=== PATIENT | female | born 1990 | race Caucasian/White ===

== ENCOUNTER 2018-05-09 16:54 | Inpatient (IN) | payer MEDICAID ==
[~2018-05-09] VITALS: Ht 157.5 cm; Wt 64.2 kg
[~2018-05-09 16:54] MED LIST: NO HOME MEDS
[2018-05-09] MEDS ORDERED: normal saline 1000ML IV soln IVB ONE ×2 (17:40)
[2018-05-09 18:59] LABS: BASOPHILS % (AUTO) 0 % (0-1); EOSINOPHILS % (AUTO) 0 % (0-6); HEMATOCRIT 47.4 % (35.0-45.0); HEMOGLOBIN 15.8 g/dl (12.0-16.0); LYMPHOCYTES # (AUTO) 0.7 X10'3 (1.1-4.8); LYMPHOCYTES % (AUTO) 3.5 % (21-51); MEAN CORPUSCULAR HEMOGLOBIN 30.4 PG (27.0-31.0); MEAN CORPUSCULAR HGB CONC 33.3 % (33.0-36.5); MEAN CORPUSCULAR VOLUME 91.4 FL (78-98); MEAN PLATELET VOLUME 8.1 FL (7.4-10.4); MONOCYTES # (AUTO) 0.5 X10'3 (0-0.9); MONOCYTES % (AUTO) 2.5 % (2-12); NEUTROPHILS # (AUTO) 17.5 X10'3 (1.8-7.7); PLATELET COUNT 215 X10'3 (140-440); RED BLOOD COUNT 5.19 X10'6 (4.20-5.60); RED CELL DISTRIBUTION WIDTH 12.6 % (11.5-14.5); WHITE BLOOD COUNT 18.6 X10'3 (4.5-11.0)
[2018-05-09 19:13] LABS: ALANINE AMINOTRANSFERASE 28 U/L (12-78); ALBUMIN 3.8 G/DL (3.4-5.0); ALBUMIN/GLOBULIN RATIO 0.7 (1.1-1.5); ALKALINE PHOSPHATASE 111 IU/L (46-116); ANION GAP 16 (8-16); ASPARTATE AMINO TRANSFERASE 30 U/L (10-37); BILIRUBIN,TOTAL 1.3 MG/DL (0.1-1.0); BLOOD UREA NITROGEN 21 MG/DL (7-18); BUN/CREATININE RATIO 19.1 (6.6-38.0); C-REACTIVE PROTEIN 24.68 MG/DL (0.0-0.5); CALCIUM 9.5 MG/DL (8.5-10.1); CHLORIDE 90 MMOL/L (99-107); GLUCOSE 142 MG/DL (70-104); POTASSIUM 3.2 MMOL/L (3.5-5.1); SODIUM 130 MMOL/L (135-145); TOTAL CARBON DIOXIDE 24.5 MMOL/L (24-32); TOTAL PROTEIN 9.3 G/DL (6.4-8.2); eGFR 58 ML/MIN
[2018-05-09 19:16] LABS: INR 1.2 INR; PARTIAL THROMBOPLASTIN TIME 31 SECONDS (22-32)
[2018-05-09] MEDS ORDERED: vancomycin/NS 1 GM ADD-VANTAGE 250 ML X 1 DOSE IV ONE (19:35)
[2018-05-09] MEDS ORDERED: piperacillin/tazo 4.5gm/100ml 100 ML IV SCH (19:35)
[2018-05-09] MEDS ORDERED: piperacillin/tazo 4.5gm/100ml 100 ML IV ONE (19:35)
[2018-05-09 19:51] LABS: URINE HCG NEGATIVE (NEG)
[2018-05-09 19:53] LABS: COLOR,URINE YELLOW (Yellow); GLUCOSE, URINE NEGATIVE (Neg); KETONES,URINE NEGATIVE (Neg); LEUKOCYTE ESTERASE ,URINE NEGATIVE (Neg); NITRITES, URINE NEGATIVE (Neg); OCCULT BLOOD,URINE LARGE (Neg); PROTEIN,URINE 100 mg/dl (Neg); UROBILINOGEN,URINE 0.2 E.U/dL (0.2-1.0)
[2018-05-09 20:01] LABS: CLARITY,URINE SLIGHTLY CLOUDY (Clear); UA COLLECTION TYPE STRAIGHT CATH
[2018-05-09 20:02] LABS: BACTERIA,URINE FEW /HPF (Neg); COARSE GRANULAR CAST 0-3 /LPF (NEGATIVE); HYALINE CASTS 0-3 /LPF (NEGATIVE); MUCUS STRANDS FEW /LPF (Neg); SQUAMOUS EPITHELIAL CELL,UR FEW /LPF (FEW); WBC,URINE 0-4 /HPF (0-4)
[2018-05-09 20:07] LABS: URINE AMPHETAMINE SCREEN POSITIVE (Neg); URINE BARBITUATE SCREEN NEGATIVE (Neg); URINE BENZODIAZEPINES SCREEN NEGATIVE (Neg); URINE CANNABINOID SCREEN NEGATIVE (Neg); URINE COCAINE SCREEN NEGATIVE (Neg); URINE METHADONE SCREEN NEGATIVE (Neg); URINE OPIATE SCREEN POSITIVE (Neg); URINE PHENCYCLIDINE SCREEN NEGATIVE (Neg)
[2018-05-09] MEDS ORDERED: normal saline 1000ml 1,000 ML IV ONE (20:50)
[2018-05-09] MEDS ORDERED: temazepam 15mg capsule PO PRN (21:00)
[2018-05-09] MEDS ORDERED: HYDROmorphone 1 mg/ml syringe IV PRN (22:00)
[2018-05-09] MEDS ORDERED: bisacodyl 10mg suppository rectal RC PRN (22:00)
[2018-05-09] MEDS ORDERED: morphine 2 MG/ML inj. syringe IV PRN (22:00)
[2018-05-09] MEDS ORDERED: acetaminophen 650mg rectal suppository RC PRN (22:00)
[2018-05-09] MEDS ORDERED: diphenhydrAMINE 25mg capsule PO PRN (22:00)
[2018-05-09] MEDS ORDERED: magnesium hydroxide 30ml (MOM) UD suspension PO PRN (22:00)
[2018-05-09] MEDS ORDERED: diphenhydrAMINE 50 mg/ml inj IV PRN (22:00)
[2018-05-09] MEDS ORDERED: mag hydrox/Alum hydrox/simeth 30ml oral suspension PO PRN (22:00)
[2018-05-09] MEDS ORDERED: HYDROcodone/acetaminophen 5mg/325mg tablet PO PRN (22:00)
[2018-05-09] MEDS ORDERED: acetaminophen 325mg tablet PO PRN (22:00)
[2018-05-09] MEDS ORDERED: ondansetron/PF 4mg/2ml inj IV PRN (22:00)
[2018-05-09] MEDS ORDERED: pantoprazole 40 MG vial IV ONE (22:05)
[2018-05-09] MEDS ORDERED: proCHLORperazine 10 MG/2 ml inj IV PRN (22:05)
[2018-05-09] MEDS ORDERED: potassium Cl 40MEQ/NS 500ml 500 ML IV PRN ×2 (22:05)
[2018-05-09] MEDS ORDERED: potassium Cl 20 mEq SR tablet PO PRN ×2 (22:05)
[2018-05-09] MEDS ORDERED: Permethrin Cream 60gm TP ONE (23:00)
[2018-05-09 23:05] VITALS: BP 110/72
[2018-05-09] MEDS: HYDROcodone/acetaminophen 10/325mg tab PO PRN (23:16)
[2018-05-09] MEDS: potassium Cl 20mEq in NS 1,000 ML IV SCH (23:21)
[2018-05-10] VITALS (21 sets, daily range): BP systolic 75–105; BP diastolic 40–70
[2018-05-10] MEDS ORDERED: piperacillin-tazo 2.25gm/50ml 50 ML IV SCH (02:00)
[2018-05-10] MEDS: piperacillin/tazo 4.5gm/100ml 50 ML IV SCH ×2 (02:02→08:00)
[2018-05-10] MEDS ORDERED: DOPamine 400mg/D5W 250ml 250 ML IV SCH (03:20)
[2018-05-10] MEDS ORDERED: DOBUTamine-DoBUTrex 500mg/D5W 250 ML IV SCH (03:25)
[2018-05-10 03:40] LABS: ABG HCO3 15.8 mmol/L (22.0-26.0); ABG OXYGEN SATURATION 98.9 % (95-98); ABG PCO2 (T) 21.2 mmHg (32.0-45.0); ABG PH (T) 7.488 (7.350-7.450); ABG PO2 (T) 274.1 mmHg (83-108); FCOHb 0.3 % (0.5-1.5); FLOW 4 L/min; FMetHb 0.3 % (0.3-1.12); FO2Hb 98.3 % (94-100); PATIENT TEMPERATURE 36.8; TOTAL HEMOGLOBIN 10.9 G/dl (12.0-16.0)
[2018-05-10] MEDS ORDERED: albumin (Human) 5% 250ml 250 ML IV ONE (04:25)
[2018-05-10] MEDS ORDERED: albumin (Human) 5% 250ml 500 ML IV ONE (04:33)
[2018-05-10] MEDS ORDERED: NORepinephrine 8mg/ 250ml NS 250 ML IV ONE (06:03)
[2018-05-10 07:02] LABS: BASOPHILS % (AUTO) 0.1 % (0-1); EOSINOPHILS % (AUTO) 0.3 % (0-6); HEMATOCRIT 28.8 % (35.0-45.0); HEMOGLOBIN 9.4 g/dl (12.0-16.0); LYMPHOCYTES # (AUTO) 0.7 X10'3 (1.1-4.8); LYMPHOCYTES % (AUTO) 5.3 % (21-51); MEAN CORPUSCULAR HGB CONC 32.8 % (33.0-36.5); MEAN CORPUSCULAR VOLUME 91.7 FL (78-98); MEAN PLATELET VOLUME 8.5 FL (7.4-10.4); MONOCYTES # (AUTO) 0.7 X10'3 (0-0.9); NEUTROPHILS # (AUTO) 12.2 X10'3 (1.8-7.7); NEUTROPHILS % (AUTO) 89.3 % (42-75); PLATELET COUNT 137 X10'3 (140-440); RED BLOOD COUNT 3.15 X10'6 (4.20-5.60); RED CELL DISTRIBUTION WIDTH 12.8 % (11.5-14.5); WHITE BLOOD COUNT 13.6 X10'3 (4.5-11.0)
[2018-05-10 07:17] LABS: ALANINE AMINOTRANSFERASE 17 U/L (12-78); ALBUMIN 2.4 G/DL (3.4-5.0); ALBUMIN/GLOBULIN RATIO 0.9 (1.1-1.5); ALKALINE PHOSPHATASE 47 IU/L (46-116); ANION GAP 12 (8-16); ASPARTATE AMINO TRANSFERASE 21 U/L (10-37); BLOOD UREA NITROGEN 12 MG/DL (7-18); BUN/CREATININE RATIO 15.8 (6.6-38.0); CHLORIDE 104 MMOL/L (99-107); CREATININE 0.76 MG/DL (0.40-0.90); GLUCOSE 118 MG/DL (70-104); MAGNESIUM 1.8 MG/DL (1.5-2.4); POTASSIUM 3.2 MMOL/L (3.5-5.1); SODIUM 136 MMOL/L (135-145); TOTAL CARBON DIOXIDE 20.2 MMOL/L (24-32); TOTAL PROTEIN 5.2 G/DL (6.4-8.2); eGFR 89 ML/MIN
[2018-05-10 07:40] LABS: CALCIUM 6.9 MG/DL (8.5-10.1)
[2018-05-10 07:41] LABS: INR 1.5 INR; PROTHROMBIN TIME 14.7 SECONDS (9.0-12.0)
[2018-05-10] MEDS: docusate sod 100mg capsule PO SCH ×2 (07:44→20:00)
[2018-05-10] MEDS: potassium Cl 20mEq in NS 1,000 ML IV SCH ×3 (07:47→20:29)
[2018-05-10] MEDS: VANCOMYCIN 750MG IV in NS 250 ML IV SCH ×2 (08:00→19:55)
[2018-05-10] MEDS ORDERED: vancomycin/NS 1 GM ADD-VANTAGE 250 ML IV SCH (08:00)
[2018-05-10] MEDS: aspirin 81mg tab.chew PO SCH (08:57)
[2018-05-10] MEDS: HYDROmorphone 1 mg/ml syringe IV PRN ×3 (09:23→19:12)
[2018-05-10 09:47] LABS: TROPONIN I 0.69 NG/ML (0.0-0.05)
[2018-05-10] MEDS ORDERED: ceFAZolin 1GM/D5W- ADD-VANTAGE 50 ML IV SCH (10:15)
[2018-05-10] MEDS ORDERED: normal saline 1000ml 1,000 ML IVB ONE (10:24)
[2018-05-10] MEDS: NORepinephrine 8mg/ 250ml NS 250 ML IV SCH (14:52)
[2018-05-10] MEDS: ceFAZolin 1GM/D5W- ADD-VANTAGE 50 ML IV SCH (16:39)
[2018-05-10 19:00] LABS: OXYGEN SATURATION (MIXED VEN) 55.9 % (60-80)
[2018-05-10] MEDS: lactobacillus rhamnosus 10,000 MMU CELLS/CAPSULE PO SCH (19:11)
[2018-05-10 19:51] LABS: ALANINE AMINOTRANSFERASE 22 U/L (12-78); ALBUMIN 2.2 G/DL (3.4-5.0); ALBUMIN/GLOBULIN RATIO 0.7 (1.1-1.5); ALKALINE PHOSPHATASE 57 IU/L (46-116); ANION GAP 8 (8-16); ASPARTATE AMINO TRANSFERASE 32 U/L (10-37); BILIRUBIN,TOTAL 0.4 MG/DL (0.1-1.0); BLOOD UREA NITROGEN 10 MG/DL (7-18); BUN/CREATININE RATIO 14.5 (6.6-38.0); CALCIUM 7.4 MG/DL (8.5-10.1); CHLORIDE 105 MMOL/L (99-107); CREATININE 0.69 MG/DL (0.40-0.90); GLUCOSE 143 MG/DL (70-104); MAGNESIUM 1.9 MG/DL (1.5-2.4); POTASSIUM 3.6 MMOL/L (3.5-5.1); SODIUM 135 MMOL/L (135-145); TOTAL CARBON DIOXIDE 22.1 MMOL/L (24-32); TOTAL PROTEIN 5.2 G/DL (6.4-8.2); TROPONIN I 0.27 NG/ML (0.0-0.05); eGFR > 90 ML/MIN
[2018-05-10] MEDS: HYDROcodone/acetaminophen 10/325mg tab PO PRN (21:46)
[2018-05-11] VITALS (24 sets, daily range): BP systolic 79–101; BP diastolic 51–66
[2018-05-11] MEDS: ceFAZolin 1GM/D5W- ADD-VANTAGE 50 ML IV SCH ×2 (00:03→08:27)
[2018-05-11] MEDS: HYDROmorphone 1 mg/ml syringe IV PRN ×6 (00:03→21:07)
[2018-05-11] MEDS: potassium Cl 20mEq in NS 1,000 ML IV SCH ×3 (02:09→20:22)
[2018-05-11] MEDS: HYDROcodone/acetaminophen 10/325mg tab PO PRN ×5 (02:09→22:22)
[2018-05-11 03:07] LABS: ALANINE AMINOTRANSFERASE 22 U/L (12-78); ALBUMIN/GLOBULIN RATIO 0.7 (1.1-1.5); ALKALINE PHOSPHATASE 50 IU/L (46-116); ANION GAP 4 (8-16); ASPARTATE AMINO TRANSFERASE 26 U/L (10-37); BILIRUBIN,TOTAL 0.5 MG/DL (0.1-1.0); BLOOD UREA NITROGEN 8 MG/DL (7-18); BUN/CREATININE RATIO 13.8 (6.6-38.0); CALCIUM 7.6 MG/DL (8.5-10.1); CHLORIDE 107 MMOL/L (99-107); CREATININE 0.58 MG/DL (0.40-0.90); GLUCOSE 113 MG/DL (70-104); SODIUM 136 MMOL/L (135-145); TOTAL CARBON DIOXIDE 24.8 MMOL/L (24-32); eGFR > 90 ML/MIN
[2018-05-11 03:14] LABS: MAGNESIUM 2.1 MG/DL (1.5-2.4)
[2018-05-11 03:17] LABS: BASOPHILS % (AUTO) 0 % (0-1); EOSINOPHILS % (AUTO) 0.2 % (0-6); HEMATOCRIT 29.6 % (35.0-45.0); HEMOGLOBIN 9.8 g/dl (12.0-16.0); LYMPHOCYTES # (AUTO) 1.3 X10'3 (1.1-4.8); LYMPHOCYTES % (AUTO) 9.8 % (21-51); MEAN CORPUSCULAR HEMOGLOBIN 30.2 PG (27.0-31.0); MEAN CORPUSCULAR VOLUME 91.5 FL (78-98); MEAN PLATELET VOLUME 8.9 FL (7.4-10.4); MONOCYTES # (AUTO) 0.9 X10'3 (0-0.9); MONOCYTES % (AUTO) 6.6 % (2-12); NEUTROPHILS # (AUTO) 11.3 X10'3 (1.8-7.7); NEUTROPHILS % (AUTO) 83.4 % (42-75); PLATELET COUNT 171 X10'3 (140-440); RED BLOOD COUNT 3.24 X10'6 (4.20-5.60); RED CELL DISTRIBUTION WIDTH 13.2 % (11.5-14.5); WHITE BLOOD COUNT 13.5 X10'3 (4.5-11.0)
[2018-05-11] MEDS: aspirin 81mg tab.chew PO SCH (08:25)
[2018-05-11] MEDS: lactobacillus rhamnosus 10,000 MMU CELLS/CAPSULE PO SCH ×2 (08:25→20:27)
[2018-05-11] MEDS: docusate sod 100mg capsule PO SCH ×2 (08:25→20:27)
[2018-05-11] MEDS: VANCOMYCIN 750MG IV in NS 250 ML IV SCH (09:54)
[2018-05-11] MEDS ORDERED: pantoprazole 40mg Tablet.DR PO SCH (10:57)
[2018-05-11] MEDS: nafcillin inj 2 GM in normal saline 100ml IV soln 100 ML IV SCH ×3 (11:46→20:27)
[2018-05-11] MEDS ORDERED: VANCOMYCIN LEVEL IV ONE (19:30)
[2018-05-12] VITALS (24 sets, daily range): BP systolic 74–100; BP diastolic 52–64
[2018-05-12] MEDS: nafcillin inj 2 GM in normal saline 100ml IV soln 100 ML IV SCH ×6 (00:26→20:06)
[2018-05-12] MEDS: HYDROmorphone 1 mg/ml syringe IV PRN ×7 (01:08→21:05)
[2018-05-12 03:38] LABS: HEMOGLOBIN 10.2 g/dl (12.0-16.0); RED CELL DISTRIBUTION WIDTH 13.3 % (11.5-14.5); WHITE BLOOD COUNT 11.5 X10'3 (4.5-11.0)
[2018-05-12 03:55] LABS: BASOPHILS % (AUTO) 0.1 % (0-1); EOSINOPHILS # (AUTO) 0.2 X10'3 (0-0.9); EOSINOPHILS % (AUTO) 1.4 % (0-6); HEMATOCRIT 31.5 % (35.0-45.0); LYMPHOCYTES # (AUTO) 1.6 X10'3 (1.1-4.8); LYMPHOCYTES % (AUTO) 13.6 % (21-51); MEAN CORPUSCULAR HEMOGLOBIN 29.7 PG (27.0-31.0); MEAN CORPUSCULAR HGB CONC 32.3 % (33.0-36.5); MEAN CORPUSCULAR VOLUME 92.1 FL (78-98); MEAN PLATELET VOLUME 8.9 FL (7.4-10.4); MONOCYTES # (AUTO) 0.5 X10'3 (0-0.9); NEUTROPHILS # (AUTO) 9.3 X10'3 (1.8-7.7); NEUTROPHILS % (AUTO) 80.9 % (42-75); PLATELET COUNT 211 X10'3 (140-440); RED BLOOD COUNT 3.42 X10'6 (4.20-5.60)
[2018-05-12] MEDS: morphine 2 MG/ML inj. syringe IV PRN ×2 (04:13→08:04)
[2018-05-12 04:14] LABS: ALBUMIN 1.8 G/DL (3.4-5.0); ANION GAP 7 (8-16); BLOOD UREA NITROGEN 7 MG/DL (7-18); BUN/CREATININE RATIO 10.6 (6.6-38.0); CALCIUM 7.3 MG/DL (8.5-10.1); CHLORIDE 108 MMOL/L (99-107); CREATININE 0.66 MG/DL (0.40-0.90); GLUCOSE 102 MG/DL (70-104); MAGNESIUM 1.8 MG/DL (1.5-2.4); POTASSIUM 3.8 MMOL/L (3.5-5.1); SODIUM 137 MMOL/L (135-145); TOTAL CARBON DIOXIDE 22.5 MMOL/L (24-32); eGFR > 90 ML/MIN
[2018-05-12] MEDS: potassium Cl 20mEq in NS 1,000 ML IV SCH ×2 (06:22→16:22)
[2018-05-12] MEDS: docusate sod 100mg capsule PO SCH ×2 (08:00→19:09)
[2018-05-12] MEDS: lactobacillus rhamnosus 10,000 MMU CELLS/CAPSULE PO SCH ×2 (08:00→19:09)
[2018-05-12] MEDS: aspirin 81mg tab.chew PO SCH (08:00)
[2018-05-12] MEDS: pantoprazole 40mg Tablet.DR PO SCH (08:00)
[2018-05-12] MEDS ORDERED: HYDROmorphone 1 mg/ml syringe IV PRN (10:35)
[2018-05-12] MEDS: methadone 10mg tablet PO SCH ×2 (12:05→17:48)
[2018-05-12] MEDS: NORepinephrine 8mg/ 250ml NS 250 ML IV SCH ×2 (14:40→21:06)
[2018-05-13] VITALS (23 sets, daily range): BP systolic 81–110; BP diastolic 50–73
[2018-05-13] MEDS: methadone 10mg tablet PO SCH ×3 (00:23→16:28)
[2018-05-13] MEDS: nafcillin inj 2 GM in normal saline 100ml IV soln 100 ML IV SCH ×6 (00:23→20:31)
[2018-05-13] MEDS: HYDROmorphone 1 mg/ml syringe IV PRN ×9 (00:28→20:36)
[2018-05-13] MEDS: potassium Cl 20mEq in NS 1,000 ML IV SCH ×3 (02:22→18:49)
[2018-05-13 03:31] LABS: BASOPHILS % (AUTO) 0.3 % (0-1); EOSINOPHILS # (AUTO) 0.2 X10'3 (0-0.9); EOSINOPHILS % (AUTO) 2.1 % (0-6); HEMATOCRIT 29.9 % (35.0-45.0); HEMOGLOBIN 9.6 g/dl (12.0-16.0); LYMPHOCYTES # (AUTO) 1.9 X10'3 (1.1-4.8); LYMPHOCYTES % (AUTO) 16.3 % (21-51); MEAN CORPUSCULAR HEMOGLOBIN 29.5 PG (27.0-31.0); MEAN CORPUSCULAR HGB CONC 32.1 % (33.0-36.5); MONOCYTES # (AUTO) 1.3 X10'3 (0-0.9); NEUTROPHILS # (AUTO) 8.4 X10'3 (1.8-7.7); NEUTROPHILS % (AUTO) 70.3 % (42-75); PLATELET COUNT 293 X10'3 (140-440); RED BLOOD COUNT 3.25 X10'6 (4.20-5.60); RED CELL DISTRIBUTION WIDTH 13.3 % (11.5-14.5); WHITE BLOOD COUNT 11.9 X10'3 (4.5-11.0)
[2018-05-13 04:17] LABS: ALBUMIN 1.6 G/DL (3.4-5.0); ANION GAP 7 (8-16); BLOOD UREA NITROGEN 5 MG/DL (7-18); BUN/CREATININE RATIO 6.6 (6.6-38.0); CALCIUM 6.9 MG/DL (8.5-10.1); CHLORIDE 105 MMOL/L (99-107); CREATININE 0.76 MG/DL (0.40-0.90); GLUCOSE 139 MG/DL (70-104); MAGNESIUM 1.7 MG/DL (1.5-2.4); SODIUM 137 MMOL/L (135-145); TOTAL CARBON DIOXIDE 24.8 MMOL/L (24-32); eGFR 89 ML/MIN
[2018-05-13] MEDS: lactobacillus rhamnosus 10,000 MMU CELLS/CAPSULE PO SCH ×2 (07:51→20:31)
[2018-05-13] MEDS: pantoprazole 40mg Tablet.DR PO SCH (07:51)
[2018-05-13] MEDS: docusate sod 100mg capsule PO SCH ×2 (07:51→20:00)
[2018-05-13] MEDS: aspirin 81mg tab.chew PO SCH (07:51)
[2018-05-13] MEDS ORDERED: midodrine tablet 2.5 MG TABLET PO SCH (09:50)
[2018-05-13] MEDS: midodrine 5mg tablet PO SCH (16:28)
[2018-05-14] VITALS (22 sets, daily range): BP systolic 85–136; BP diastolic 54–87
[2018-05-14] MEDS: nafcillin inj 2 GM in normal saline 100ml IV soln 100 ML IV SCH ×6 (00:10→21:06)
[2018-05-14] MEDS: methadone 10mg tablet PO SCH ×3 (00:11→16:04)
[2018-05-14] MEDS: midodrine 5mg tablet PO SCH ×2 (00:11→08:08)
[2018-05-14] MEDS: HYDROmorphone 1 mg/ml syringe IV PRN ×3 (02:36→08:08)
[2018-05-14 02:47] LABS: BASOPHILS # (AUTO) 0.1 X10'3 (0-0.2); BASOPHILS % (AUTO) 0.5 % (0-1); EOSINOPHILS # (AUTO) 0.4 X10'3 (0-0.9); HEMOGLOBIN 9.8 g/dl (12.0-16.0); LYMPHOCYTES # (AUTO) 1.9 X10'3 (1.1-4.8); LYMPHOCYTES % (AUTO) 14.6 % (21-51); MEAN CORPUSCULAR HEMOGLOBIN 30.1 PG (27.0-31.0); MEAN CORPUSCULAR HGB CONC 32.6 % (33.0-36.5); MEAN CORPUSCULAR VOLUME 92.2 FL (78-98); MONOCYTES # (AUTO) 1.2 X10'3 (0-0.9); MONOCYTES % (AUTO) 9.3 % (2-12); NEUTROPHILS # (AUTO) 9.6 X10'3 (1.8-7.7); NEUTROPHILS % (AUTO) 72.6 % (42-75); PLATELET COUNT 368 X10'3 (140-440); RED BLOOD COUNT 3.25 X10'6 (4.20-5.60); RED CELL DISTRIBUTION WIDTH 13.7 % (11.5-14.5); WHITE BLOOD COUNT 13.2 X10'3 (4.5-11.0)
[2018-05-14 03:00] LABS: ALANINE AMINOTRANSFERASE 18 U/L (12-78); ALBUMIN 1.7 G/DL (3.4-5.0); ALBUMIN/GLOBULIN RATIO 0.5 (1.1-1.5); ALKALINE PHOSPHATASE 59 IU/L (46-116); ANION GAP 7 (8-16); ASPARTATE AMINO TRANSFERASE 16 U/L (10-37); BILIRUBIN,TOTAL 0.6 MG/DL (0.1-1.0); BLOOD UREA NITROGEN 6 MG/DL (7-18); BUN/CREATININE RATIO 7.7 (6.6-38.0); CALCIUM 7.6 MG/DL (8.5-10.1); CHLORIDE 104 MMOL/L (99-107); CREATININE 0.78 MG/DL (0.40-0.90); GLUCOSE 117 MG/DL (70-104); MAGNESIUM 1.9 MG/DL (1.5-2.4); PHOSPHORUS 3.6 MG/DL (2.3-4.5); POTASSIUM 4.3 MMOL/L (3.5-5.1); SODIUM 138 MMOL/L (135-145); TOTAL CARBON DIOXIDE 26.9 MMOL/L (24-32); TOTAL PROTEIN 5.2 G/DL (6.4-8.2); eGFR 87 ML/MIN
[2018-05-14] MEDS: docusate sod 100mg capsule PO SCH ×2 (06:31→20:00)
[2018-05-14] MEDS: pantoprazole 40mg Tablet.DR PO SCH (08:08)
[2018-05-14] MEDS: lactobacillus rhamnosus 10,000 MMU CELLS/CAPSULE PO SCH ×2 (08:08→21:05)
[2018-05-14] MEDS: aspirin 81mg tab.chew PO SCH (08:08)
[2018-05-14] MEDS: potassium Cl 20mEq in NS 1,000 ML IV SCH ×2 (08:09→21:04)
[2018-05-14 11:26] LABS: OXYGEN SATURATION (MIXED VEN) 54.3 % (60-80)
[2018-05-14] MEDS: NORepinephrine 8mg/ 250ml NS 250 ML IV SCH (14:40)
[2018-05-14] MEDS: DOPamine 400mg/D5W 250ml 250 ML IV SCH (17:15)
[2018-05-15] VITALS (13 sets, daily range): BP systolic 89–127; BP diastolic 48–91
[2018-05-15] MEDS: methadone 10mg tablet PO SCH ×3 (00:19→16:17)
[2018-05-15] MEDS: nafcillin inj 2 GM in normal saline 100ml IV soln 100 ML IV SCH ×6 (00:20→20:30)
[2018-05-15] MEDS: potassium Cl 20mEq in NS 1,000 ML IV SCH ×3 (04:22→20:31)
[2018-05-15 06:06] LABS: BASOPHILS % (AUTO) 0.4 % (0-1); EOSINOPHILS # (AUTO) 0.4 X10'3 (0-0.9); EOSINOPHILS % (AUTO) 3.7 % (0-6); HEMATOCRIT 32.3 % (35.0-45.0); HEMOGLOBIN 10.7 g/dl (12.0-16.0); LYMPHOCYTES # (AUTO) 1.9 X10'3 (1.1-4.8); LYMPHOCYTES % (AUTO) 16.2 % (21-51); MEAN CORPUSCULAR HEMOGLOBIN 30.6 PG (27.0-31.0); MEAN CORPUSCULAR HGB CONC 33.1 % (33.0-36.5); MEAN CORPUSCULAR VOLUME 92.4 FL (78-98); MEAN PLATELET VOLUME 7.6 FL (7.4-10.4); MONOCYTES # (AUTO) 1.1 X10'3 (0-0.9); MONOCYTES % (AUTO) 9.4 % (2-12); NEUTROPHILS # (AUTO) 8.4 X10'3 (1.8-7.7); NEUTROPHILS % (AUTO) 70.3 % (42-75); PLATELET COUNT 419 X10'3 (140-440); RED CELL DISTRIBUTION WIDTH 13.4 % (11.5-14.5)
[2018-05-15 06:08] LABS: ALANINE AMINOTRANSFERASE 17 U/L (12-78); ALBUMIN 1.8 G/DL (3.4-5.0); ALBUMIN/GLOBULIN RATIO 0.5 (1.1-1.5); ALKALINE PHOSPHATASE 65 IU/L (46-116); ANION GAP 7 (8-16); ASPARTATE AMINO TRANSFERASE 15 U/L (10-37); BILIRUBIN,TOTAL 0.4 MG/DL (0.1-1.0); BLOOD UREA NITROGEN 5 MG/DL (7-18); BUN/CREATININE RATIO 6.6 (6.6-38.0); CALCIUM 7.5 MG/DL (8.5-10.1); CHLORIDE 104 MMOL/L (99-107); CREATININE 0.76 MG/DL (0.40-0.90); GLUCOSE 117 MG/DL (70-104); MAGNESIUM 1.9 MG/DL (1.5-2.4); PHOSPHORUS 4.2 MG/DL (2.3-4.5); POTASSIUM 3.6 MMOL/L (3.5-5.1); SODIUM 137 MMOL/L (135-145); TOTAL CARBON DIOXIDE 26.3 MMOL/L (24-32); TOTAL PROTEIN 5.8 G/DL (6.4-8.2); eGFR 89 ML/MIN
[2018-05-15 06:49] LABS: ANISOCYTOSIS 1+; PLATELET ESTIMATE NORMAL; TOTAL CELLS COUNTED 100
[2018-05-15 06:50] LABS: POLYCHROMASIA 2+
[2018-05-15 06:57] LABS: HIV ANTIBODY 1&2 RAPID NON-REACTIVE (Neg)
[2018-05-15] MEDS: pantoprazole 40mg Tablet.DR PO SCH (08:36)
[2018-05-15] MEDS: aspirin 81mg tab.chew PO SCH (08:36)
[2018-05-15] MEDS: docusate sod 100mg capsule PO SCH ×2 (08:36→20:00)
[2018-05-15] MEDS: lactobacillus rhamnosus 10,000 MMU CELLS/CAPSULE PO SCH ×2 (08:36→20:31)
[2018-05-15] MEDS: DOPamine 400mg/D5W 250ml 250 ML IV SCH (16:18)
[2018-05-16] VITALS (8 sets, daily range): BP systolic 91–144; BP diastolic 52–97
[2018-05-16] MEDS: methadone 10mg tablet PO SCH ×3 (00:24→15:41)
[2018-05-16] MEDS: nafcillin inj 2 GM in normal saline 100ml IV soln 100 ML IV SCH ×6 (00:27→20:00)
[2018-05-16 05:58] LABS: BASOPHILS % (AUTO) 0.3 % (0-1); EOSINOPHILS # (AUTO) 0.3 X10'3 (0-0.9); EOSINOPHILS % (AUTO) 2.4 % (0-6); HEMATOCRIT 34.8 % (35.0-45.0); HEMOGLOBIN 11.1 g/dl (12.0-16.0); LYMPHOCYTES # (AUTO) 1.7 X10'3 (1.1-4.8); LYMPHOCYTES % (AUTO) 14.3 % (21-51); MEAN CORPUSCULAR HEMOGLOBIN 29.6 PG (27.0-31.0); MEAN CORPUSCULAR VOLUME 92.4 FL (78-98); MEAN PLATELET VOLUME 7.4 FL (7.4-10.4); MONOCYTES % (AUTO) 8.1 % (2-12); NEUTROPHILS # (AUTO) 9.2 X10'3 (1.8-7.7); NEUTROPHILS % (AUTO) 74.9 % (42-75); PLATELET COUNT 465 X10'3 (140-440); RED BLOOD COUNT 3.77 X10'6 (4.20-5.60); RED CELL DISTRIBUTION WIDTH 13.5 % (11.5-14.5); WHITE BLOOD COUNT 12.2 X10'3 (4.5-11.0)
[2018-05-16 06:24] LABS: ALANINE AMINOTRANSFERASE 17 U/L (12-78); ALBUMIN 2.3 G/DL (3.4-5.0); ALBUMIN/GLOBULIN RATIO 0.5 (1.1-1.5); ALKALINE PHOSPHATASE 70 IU/L (46-116); ANION GAP 10 (8-16); ASPARTATE AMINO TRANSFERASE 16 U/L (10-37); BILIRUBIN,TOTAL 0.5 MG/DL (0.1-1.0); BLOOD UREA NITROGEN 4 MG/DL (7-18); BUN/CREATININE RATIO 5.1 (6.6-38.0); CALCIUM 8.5 MG/DL (8.5-10.1); CHLORIDE 103 MMOL/L (99-107); CREATININE 0.78 MG/DL (0.40-0.90); GLUCOSE 109 MG/DL (70-104); PHOSPHORUS 4.5 MG/DL (2.3-4.5); POTASSIUM 3.7 MMOL/L (3.5-5.1); SODIUM 138 MMOL/L (135-145); TOTAL CARBON DIOXIDE 25.2 MMOL/L (24-32); TOTAL PROTEIN 6.6 G/DL (6.4-8.2); eGFR 87 ML/MIN
[2018-05-16] MEDS ORDERED: FLUoxetine 20mg capsule PO SCH (08:00)
[2018-05-16] MEDS: docusate sod 100mg capsule PO SCH ×2 (09:35→20:00)
[2018-05-16] MEDS: lactobacillus rhamnosus 10,000 MMU CELLS/CAPSULE PO SCH ×2 (09:35→20:00)
[2018-05-16] MEDS: aspirin 81mg tab.chew PO SCH (09:35)
[2018-05-16] MEDS: pantoprazole 40mg Tablet.DR PO SCH (09:36)
[2018-05-16] MEDS: potassium Cl 20mEq in NS 1,000 ML IV SCH ×2 (11:42→20:22)
[2018-05-17] MEDS: nafcillin inj 2 GM in normal saline 100ml IV soln 100 ML IV SCH (01:15)
[2018-05-17 01:58] LABS: URINE AMPHETAMINE SCREEN POSITIVE (Neg); URINE BARBITUATE SCREEN NEGATIVE (Neg); URINE BENZODIAZEPINES SCREEN POSITIVE (Neg); URINE CANNABINOID SCREEN NEGATIVE (Neg); URINE COCAINE SCREEN NEGATIVE (Neg); URINE METHADONE SCREEN POSITIVE (Neg); URINE OPIATE SCREEN POSITIVE (Neg); URINE PHENCYCLIDINE SCREEN NEGATIVE (Neg)
[2018-05-17 03:00] VITALS: BP 107/73
[2018-05-17 08:12] LABS: BASOPHILS % (AUTO) 0.4 % (0-1); EOSINOPHILS # (AUTO) 0.3 X10'3 (0-0.9); HEMOGLOBIN 8.8 g/dl (12.0-16.0); LYMPHOCYTES # (AUTO) 1.5 X10'3 (1.1-4.8); LYMPHOCYTES % (AUTO) 18.7 % (21-51); MEAN CORPUSCULAR HEMOGLOBIN 30.1 PG (27.0-31.0); MEAN CORPUSCULAR HGB CONC 32.5 % (33.0-36.5); MEAN CORPUSCULAR VOLUME 92.8 FL (78-98); MEAN PLATELET VOLUME 7.1 FL (7.4-10.4); MONOCYTES # (AUTO) 0.6 X10'3 (0-0.9); MONOCYTES % (AUTO) 7.7 % (2-12); NEUTROPHILS # (AUTO) 5.7 X10'3 (1.8-7.7); NEUTROPHILS % (AUTO) 69.2 % (42-75); PLATELET COUNT 381 X10'3 (140-440); RED BLOOD COUNT 2.91 X10'6 (4.20-5.60); RED CELL DISTRIBUTION WIDTH 13.8 % (11.5-14.5); WHITE BLOOD COUNT 8.2 X10'3 (4.5-11.0)
[2018-05-17 08:23] LABS: ALBUMIN 1.9 G/DL (3.4-5.0); ANION GAP 7 (8-16); BLOOD UREA NITROGEN 5 MG/DL (7-18); BUN/CREATININE RATIO 5.8 (6.6-38.0); CALCIUM 7.8 MG/DL (8.5-10.1); CHLORIDE 108 MMOL/L (99-107); CREATININE 0.86 MG/DL (0.40-0.90); GLUCOSE 114 MG/DL (70-104); MAGNESIUM 2.1 MG/DL (1.5-2.4); POTASSIUM 3.5 MMOL/L (3.5-5.1); SODIUM 139 MMOL/L (135-145); TOTAL CARBON DIOXIDE 24.5 MMOL/L (24-32); eGFR 77 ML/MIN
[2018-05-17 08:38] LABS: ALANINE AMINOTRANSFERASE 16 U/L (12-78); ALBUMIN/GLOBULIN RATIO 0.5 (1.1-1.5); ALKALINE PHOSPHATASE 48 IU/L (46-116); ASPARTATE AMINO TRANSFERASE 12 U/L (10-37); BILIRUBIN,TOTAL 0.8 MG/DL (0.1-1.0); PHOSPHORUS 4.2 MG/DL (2.3-4.5); TOTAL PROTEIN 5.6 G/DL (6.4-8.2)
== END 2018-05-17 08:00 | disposition left against medical advice (07) | DRG 720 ==
LOC: ER 16:54 → ED HOLD 21:59 → PCU 3S 22:44 → CICU 2S 05-10 04:09 → PCU 3S 05-14 17:35
PROVIDERS: ADMIT Family Medicine; ATTEND Internal Medicine Critical Care Medicine
PROC: B32T1ZZ Computerized Tomography (CT Scan) of Left Pulmonary Artery using Low Osmolar Contrast (ICD-10-PCS; principal; 2018-05-09)
PROC: B3201ZZ Computerized Tomography (CT Scan) of Thoracic Aorta using Low Osmolar Contrast (ICD-10-PCS; 2018-05-09)
PROC: B32S1ZZ Computerized Tomography (CT Scan) of Right Pulmonary Artery using Low Osmolar Contrast (ICD-10-PCS; 2018-05-09)
PROC: 02H633Z Insertion of Infusion Device into Right Atrium, Percutaneous Approach (ICD-10-PCS; 2018-05-10)
PROC: B244ZZZ Ultrasonography of Right Heart (ICD-10-PCS; 2018-05-10)
DX: A41.01 Sepsis due to Methicillin susceptible Staphylococcus aureus (principal); I21.A1 Myocardial infarction type 2; I76 Septic arterial embolism; I36.8 Other nonrheumatic tricuspid valve disorders; I27.20 Pulmonary hypertension, unspecified; E87.1 Hypo-osmolality and hyponatremia; F11.20 Opioid dependence, uncomplicated; B86 Scabies; F15.90 Other stimulant use, unspecified, uncomplicated; E86.1 Hypovolemia; E87.6 Hypokalemia; F32.9 Major depressive disorder, single episode, unspecified; K52.9 Noninfective gastroenteritis and colitis, unspecified; Z91.19 Patient's noncompliance with other medical treatment and regimen
CPT/HCPCS: 36415; 36600; 71045; 71275; 80048; 80053; 80305; 81001; 81025; 82803; 82810; 83605; 83735; 83880; 84100; 84484; 85018; 85025; 85610; 85651; 85730; 86140; 86703; 87040; 87070; 87077; 87186; 93005; 93306; 96365; 96367; 99285; C9113; G0378; J0690; J1170; J1265; J2270; J2405; J2543; J3370; J3490; J7030; P9045

== ENCOUNTER 2018-05-17 10:43 | Inpatient (IN) | payer MEDICAID ==
[~2018-05-17] VITALS: Ht 157.5 cm; Wt 57.0 kg
[2018-05-17 12:02] LABS: URINE AMPHETAMINE SCREEN NEGATIVE (Neg); URINE BARBITUATE SCREEN NEGATIVE (Neg); URINE BENZODIAZEPINES SCREEN NEGATIVE (Neg); URINE CANNABINOID SCREEN NEGATIVE (Neg); URINE COCAINE SCREEN NEGATIVE (Neg); URINE METHADONE SCREEN NEGATIVE (Neg); URINE OPIATE SCREEN POSITIVE (Neg); URINE PHENCYCLIDINE SCREEN NEGATIVE (Neg)
[2018-05-17] MEDS ORDERED: magnesium hydroxide 30ml (MOM) UD suspension PO PRN (12:15)
[2018-05-17] MEDS ORDERED: mag hydrox/Alum hydrox/simeth 30ml oral suspension PO PRN (12:15)
[2018-05-17] MEDS ORDERED: ondansetron/PF 4mg/2ml inj IV PRN (12:15)
[2018-05-17] MEDS ORDERED: acetaminophen 325mg tablet PO PRN ×2 (12:15)
[2018-05-17 16:05] VITALS: BP 134/84
[2018-05-17] MEDS: nafcillin inj 2 GM in normal saline 100ml IV soln 100 ML IV SCH ×3 (16:27→23:54)
[2018-05-17] MEDS: heparin, porcine 5000 units/ml vial SQ SCH (19:29)
[2018-05-17 20:00] VITALS: BP 110/76
[2018-05-17] MEDS: Melatonin 3mg tablet PO SCH (21:07)
[2018-05-18] VITALS: BP 110/79
[2018-05-18] MEDS: nafcillin inj 2 GM in normal saline 100ml IV soln 100 ML IV SCH ×5 (04:01→19:21)
[2018-05-18 07:00] VITALS: BP 111/72
[2018-05-18] MEDS: heparin, porcine 5000 units/ml vial SQ SCH ×2 (08:00→19:46)
[2018-05-18 08:21] LABS: BASOPHILS % (AUTO) 0.2 % (0-1); EOSINOPHILS # (AUTO) 0.2 X10'3 (0-0.9); EOSINOPHILS % (AUTO) 2.1 % (0-6); HEMATOCRIT 29.7 % (35.0-45.0); HEMOGLOBIN 9.7 g/dl (12.0-16.0); LYMPHOCYTES # (AUTO) 1.5 X10'3 (1.1-4.8); LYMPHOCYTES % (AUTO) 16.5 % (21-51); MEAN CORPUSCULAR HEMOGLOBIN 30.1 PG (27.0-31.0); MEAN CORPUSCULAR HGB CONC 32.8 % (33.0-36.5); MEAN CORPUSCULAR VOLUME 91.7 FL (78-98); MONOCYTES # (AUTO) 0.5 X10'3 (0-0.9); NEUTROPHILS % (AUTO) 76.2 % (42-75); PLATELET COUNT 449 X10'3 (140-440); RED BLOOD COUNT 3.24 X10'6 (4.20-5.60); RED CELL DISTRIBUTION WIDTH 14.1 % (11.5-14.5); WHITE BLOOD COUNT 9.1 X10'3 (4.5-11.0)
[2018-05-18 08:30] LABS: ALBUMIN 2.3 G/DL (3.4-5.0); ANION GAP 10 (8-16); BLOOD UREA NITROGEN 5 MG/DL (7-18); BUN/CREATININE RATIO 6.4 (6.6-38.0); CALCIUM 8.3 MG/DL (8.5-10.1); CHLORIDE 106 MMOL/L (99-107); CREATININE 0.78 MG/DL (0.40-0.90); GLUCOSE 103 MG/DL (70-104); POTASSIUM 3.7 MMOL/L (3.5-5.1); SODIUM 139 MMOL/L (135-145); TOTAL CARBON DIOXIDE 22.8 MMOL/L (24-32); eGFR 87 ML/MIN
[2018-05-18 12:00] VITALS: BP 103/73
[2018-05-18] MEDS: traMADol 50MG tablet PO PRN (19:21)
[2018-05-18] MEDS: lactobacillus rhamnosus 10,000 MMU CELLS/CAPSULE PO SCH (19:44)
[2018-05-18] MEDS: Melatonin 3mg tablet PO SCH (19:44)
[2018-05-18 20:00] VITALS: BP 95/58
[2018-05-19] VITALS: BP 144/77
[2018-05-19] MEDS: nafcillin inj 2 GM in normal saline 100ml IV soln 100 ML IV SCH ×7 (00:21→23:50)
[2018-05-19 07:38] VITALS: BP 124/93
[2018-05-19] MEDS: heparin, porcine 5000 units/ml vial SQ SCH ×2 (08:00→19:44)
[2018-05-19] MEDS: lactobacillus rhamnosus 10,000 MMU CELLS/CAPSULE PO SCH ×2 (09:03→19:37)
[2018-05-19] MEDS: traMADol 50MG tablet PO PRN (09:03)
[2018-05-19 09:07] LABS: BASOPHILS % (AUTO) 0.3 % (0-1); EOSINOPHILS # (AUTO) 0.2 X10'3 (0-0.9); EOSINOPHILS % (AUTO) 2.1 % (0-6); HEMATOCRIT 29.4 % (35.0-45.0); HEMOGLOBIN 9.6 g/dl (12.0-16.0); LYMPHOCYTES # (AUTO) 1.3 X10'3 (1.1-4.8); LYMPHOCYTES % (AUTO) 13.1 % (21-51); MEAN CORPUSCULAR HEMOGLOBIN 30.2 PG (27.0-31.0); MEAN CORPUSCULAR HGB CONC 32.6 % (33.0-36.5); MEAN CORPUSCULAR VOLUME 92.4 FL (78-98); MEAN PLATELET VOLUME 6.8 FL (7.4-10.4); MONOCYTES # (AUTO) 0.4 X10'3 (0-0.9); MONOCYTES % (AUTO) 4.4 % (2-12); NEUTROPHILS # (AUTO) 8.2 X10'3 (1.8-7.7); NEUTROPHILS % (AUTO) 80.1 % (42-75); PLATELET COUNT 499 X10'3 (140-440); RED BLOOD COUNT 3.18 X10'6 (4.20-5.60); RED CELL DISTRIBUTION WIDTH 14.2 % (11.5-14.5); WHITE BLOOD COUNT 10.2 X10'3 (4.5-11.0)
[2018-05-19 09:22] LABS: ALBUMIN 2.3 G/DL (3.4-5.0); ANION GAP 8 (8-16); BLOOD UREA NITROGEN 6 MG/DL (7-18); BUN/CREATININE RATIO 7.6 (6.6-38.0); CALCIUM 8.4 MG/DL (8.5-10.1); CHLORIDE 107 MMOL/L (99-107); CREATININE 0.79 MG/DL (0.40-0.90); GLUCOSE 112 MG/DL (70-104); POTASSIUM 3.5 MMOL/L (3.5-5.1); SODIUM 139 MMOL/L (135-145); TOTAL CARBON DIOXIDE 23.9 MMOL/L (24-32); eGFR 85 ML/MIN
[2018-05-19 11:00] VITALS: BP 114/82
[2018-05-19] MEDS: buprenorphine/naloxone 2-0.5mg sublingual tablet SL SCH (14:42)
[2018-05-19 20:00] VITALS: BP 96/57
[2018-05-19] MEDS: Melatonin 3mg tablet PO SCH (20:01)
[2018-05-20] VITALS: BP 94/62
[2018-05-20] MEDS: nafcillin inj 2 GM in normal saline 100ml IV soln 100 ML IV SCH ×5 (04:04→20:37)
[2018-05-20 05:49] LABS: BASOPHILS # (AUTO) 0.1 X10'3 (0-0.2); BASOPHILS % (AUTO) 0.5 % (0-1); EOSINOPHILS # (AUTO) 0.2 X10'3 (0-0.9); EOSINOPHILS % (AUTO) 1.9 % (0-6); HEMATOCRIT 27.9 % (35.0-45.0); HEMOGLOBIN 9.1 g/dl (12.0-16.0); LYMPHOCYTES # (AUTO) 1.7 X10'3 (1.1-4.8); MEAN CORPUSCULAR HEMOGLOBIN 30.6 PG (27.0-31.0); MEAN CORPUSCULAR HGB CONC 32.8 % (33.0-36.5); MEAN CORPUSCULAR VOLUME 93.3 FL (78-98); MEAN PLATELET VOLUME 7.2 FL (7.4-10.4); MONOCYTES # (AUTO) 0.5 X10'3 (0-0.9); NEUTROPHILS # (AUTO) 7.6 X10'3 (1.8-7.7); NEUTROPHILS % (AUTO) 75.6 % (42-75); PLATELET COUNT 394 X10'3 (140-440); RED BLOOD COUNT 2.99 X10'6 (4.20-5.60); WHITE BLOOD COUNT 10.1 X10'3 (4.5-11.0)
[2018-05-20 06:17] LABS: ANION GAP 11 (8-16); BLOOD UREA NITROGEN 9 MG/DL (7-18); BUN/CREATININE RATIO 10.3 (6.6-38.0); CALCIUM 8.2 MG/DL (8.5-10.1); CHLORIDE 106 MMOL/L (99-107); CREATININE 0.87 MG/DL (0.40-0.90); GLUCOSE 95 MG/DL (70-104); POTASSIUM 3.7 MMOL/L (3.5-5.1); SODIUM 139 MMOL/L (135-145); TOTAL CARBON DIOXIDE 21.9 MMOL/L (24-32); eGFR 76 ML/MIN
[2018-05-20 08:00] VITALS: BP 95/62
[2018-05-20] MEDS: heparin, porcine 5000 units/ml vial SQ SCH ×2 (08:00→20:00)
[2018-05-20] MEDS ORDERED: buprenorphine/naloxone 2-0.5mg sublingual tablet SL SCH (08:00)
[2018-05-20] MEDS: lactobacillus rhamnosus 10,000 MMU CELLS/CAPSULE PO SCH ×2 (08:14→20:37)
[2018-05-20] MEDS: buprenorphine/naloxone 2-0.5mg sublingual tablet SL SCH (08:15)
[2018-05-20] MEDS: traMADol 50MG tablet PO PRN ×2 (08:27→20:37)
[2018-05-20 11:42] VITALS: BP 93/58
[2018-05-20 20:00] VITALS: BP 95/59
[2018-05-20] MEDS: Melatonin 3mg tablet PO SCH (20:37)
[2018-05-21] VITALS: BP 98/63
[2018-05-21] MEDS: nafcillin inj 2 GM in normal saline 100ml IV soln 100 ML IV SCH ×7 (00:04→20:06)
[2018-05-21 06:03] LABS: BASOPHILS # (AUTO) 0.1 X10'3 (0-0.2); BASOPHILS % (AUTO) 0.6 % (0-1); EOSINOPHILS # (AUTO) 0.2 X10'3 (0-0.9); EOSINOPHILS % (AUTO) 1.7 % (0-6); HEMATOCRIT 28.1 % (35.0-45.0); HEMOGLOBIN 9.3 g/dl (12.0-16.0); LYMPHOCYTES # (AUTO) 1.7 X10'3 (1.1-4.8); LYMPHOCYTES % (AUTO) 18.3 % (21-51); MEAN CORPUSCULAR HEMOGLOBIN 30.7 PG (27.0-31.0); MEAN CORPUSCULAR HGB CONC 33.1 % (33.0-36.5); MEAN CORPUSCULAR VOLUME 92.7 FL (78-98); MEAN PLATELET VOLUME 6.5 FL (7.4-10.4); MONOCYTES # (AUTO) 0.5 X10'3 (0-0.9); NEUTROPHILS # (AUTO) 6.9 X10'3 (1.8-7.7); NEUTROPHILS % (AUTO) 74.4 % (42-75); PLATELET COUNT 467 X10'3 (140-440); RED BLOOD COUNT 3.04 X10'6 (4.20-5.60); RED CELL DISTRIBUTION WIDTH 14.7 % (11.5-14.5); WHITE BLOOD COUNT 9.2 X10'3 (4.5-11.0)
[2018-05-21 06:10] LABS: ALBUMIN 2.2 G/DL (3.4-5.0); ANION GAP 10 (8-16); BLOOD UREA NITROGEN 8 MG/DL (7-18); BUN/CREATININE RATIO 9.3 (6.6-38.0); CALCIUM 8.2 MG/DL (8.5-10.1); CHLORIDE 105 MMOL/L (99-107); CREATININE 0.86 MG/DL (0.40-0.90); GLUCOSE 127 MG/DL (70-104); POTASSIUM 3.4 MMOL/L (3.5-5.1); SODIUM 139 MMOL/L (135-145); eGFR 77 ML/MIN
[2018-05-21] MEDS ORDERED: potassium Cl 20 mEq SR tablet PO PRN (06:50)
[2018-05-21] MEDS ORDERED: potassium Cl 40MEQ/NS 500ml 500 ML IV PRN ×2 (06:50)
[2018-05-21 07:12] VITALS: BP 92/56
[2018-05-21] MEDS: lactobacillus rhamnosus 10,000 MMU CELLS/CAPSULE PO SCH ×2 (07:52→20:05)
[2018-05-21] MEDS: buprenorphine/naloxone 2-0.5mg sublingual tablet SL SCH (07:52)
[2018-05-21] MEDS: traMADol 50MG tablet PO PRN ×2 (07:53→20:05)
[2018-05-21] MEDS: heparin, porcine 5000 units/ml vial SQ SCH ×2 (07:55→20:06)
[2018-05-21 11:19] VITALS: BP 89/57
[2018-05-21 20:00] VITALS: BP 109/72
[2018-05-21] MEDS: Melatonin 3mg tablet PO SCH (20:05)
[2018-05-22] VITALS: BP 105/69
[2018-05-22] MEDS: nafcillin inj 2 GM in normal saline 100ml IV soln 100 ML IV SCH ×7 (04:23→20:39)
[2018-05-22 06:15] LABS: BASOPHILS # (AUTO) 0.1 X10'3 (0-0.2); BASOPHILS % (AUTO) 0.8 % (0-1); EOSINOPHILS # (AUTO) 0.1 X10'3 (0-0.9); EOSINOPHILS % (AUTO) 1.7 % (0-6); HEMATOCRIT 28.8 % (35.0-45.0); HEMOGLOBIN 9.5 g/dl (12.0-16.0); LYMPHOCYTES # (AUTO) 1.4 X10'3 (1.1-4.8); LYMPHOCYTES % (AUTO) 15.5 % (21-51); MEAN CORPUSCULAR HEMOGLOBIN 30.6 PG (27.0-31.0); MEAN CORPUSCULAR HGB CONC 32.8 % (33.0-36.5); MEAN CORPUSCULAR VOLUME 93.3 FL (78-98); MEAN PLATELET VOLUME 6.5 FL (7.4-10.4); MONOCYTES # (AUTO) 0.5 X10'3 (0-0.9); MONOCYTES % (AUTO) 5.8 % (2-12); NEUTROPHILS # (AUTO) 6.7 X10'3 (1.8-7.7); NEUTROPHILS % (AUTO) 76.2 % (42-75); PLATELET COUNT 497 X10'3 (140-440); RED BLOOD COUNT 3.09 X10'6 (4.20-5.60); RED CELL DISTRIBUTION WIDTH 14.4 % (11.5-14.5); WHITE BLOOD COUNT 8.8 X10'3 (4.5-11.0)
[2018-05-22 06:27] LABS: ALBUMIN 2.4 G/DL (3.4-5.0); ANION GAP 11 (8-16); BLOOD UREA NITROGEN 12 MG/DL (7-18); BUN/CREATININE RATIO 13.8 (6.6-38.0); CALCIUM 9.1 MG/DL (8.5-10.1); CHLORIDE 105 MMOL/L (99-107); CREATININE 0.87 MG/DL (0.40-0.90); GLUCOSE 107 MG/DL (70-104); POTASSIUM 3.7 MMOL/L (3.5-5.1); SODIUM 141 MMOL/L (135-145); TOTAL CARBON DIOXIDE 24.7 MMOL/L (24-32); eGFR 76 ML/MIN
[2018-05-22] MEDS ORDERED: potassium Cl 20 mEq SR tablet PO PRN (06:50)
[2018-05-22 07:00] VITALS: BP 96/61
[2018-05-22] MEDS: lactobacillus rhamnosus 10,000 MMU CELLS/CAPSULE PO SCH ×2 (11:31→20:39)
[2018-05-22] MEDS: heparin, porcine 5000 units/ml vial SQ SCH ×2 (11:31→20:00)
[2018-05-22] MEDS: buprenorphine/naloxone 2-0.5mg sublingual tablet SL SCH (11:32)
[2018-05-22 12:28] VITALS: BP 113/71
[2018-05-22 18:00] VITALS: BP 109/67
[2018-05-22] MEDS: Melatonin 3mg tablet PO SCH (20:39)
[2018-05-22] MEDS: traMADol 50MG tablet PO PRN (20:50)
[2018-05-23] VITALS: BP 103/68
[2018-05-23] MEDS: nafcillin inj 2 GM in normal saline 100ml IV soln 100 ML IV SCH ×7 (00:13→23:17)
[2018-05-23 08:45] VITALS: BP 115/75
[2018-05-23] MEDS: lactobacillus rhamnosus 10,000 MMU CELLS/CAPSULE PO SCH ×2 (08:58→19:20)
[2018-05-23] MEDS: heparin, porcine 5000 units/ml vial SQ SCH ×2 (08:58→19:21)
[2018-05-23] MEDS: buprenorphine/naloxone 2-0.5mg sublingual tablet SL SCH (08:58)
[2018-05-23 11:30] VITALS: BP 95/62
[2018-05-23 19:00] VITALS: BP 102/65
[2018-05-23] MEDS: Melatonin 3mg tablet PO SCH (20:03)
[2018-05-24] VITALS: BP 98/69
[2018-05-24] MEDS: nafcillin inj 2 GM in normal saline 100ml IV soln 100 ML IV SCH ×5 (03:11→19:46)
[2018-05-24 08:20] VITALS: BP 99/58
[2018-05-24] MEDS: lactobacillus rhamnosus 10,000 MMU CELLS/CAPSULE PO SCH ×2 (08:41→19:50)
[2018-05-24] MEDS: buprenorphine/naloxone 2-0.5mg sublingual tablet SL SCH (08:42)
[2018-05-24] MEDS: heparin, porcine 5000 units/ml vial SQ SCH ×2 (08:42→19:51)
[2018-05-24 12:14] VITALS: BP 111/75
[2018-05-24 19:00] VITALS: BP 100/54
[2018-05-24] MEDS: Melatonin 3mg tablet PO SCH (20:45)
[2018-05-25] VITALS: BP 91/57
[2018-05-25] MEDS: nafcillin inj 2 GM in normal saline 100ml IV soln 100 ML IV SCH ×5 (04:19→12:58)
[2018-05-25 07:00] VITALS: BP 78/49
[2018-05-25] MEDS: lactobacillus rhamnosus 10,000 MMU CELLS/CAPSULE PO SCH (08:02)
[2018-05-25] MEDS: heparin, porcine 5000 units/ml vial SQ SCH (08:02)
[2018-05-25] MEDS: buprenorphine/naloxone 2-0.5mg sublingual tablet SL SCH (08:02)
[2018-05-25 08:54] VITALS: BP 105/58
[2018-05-25 11:32] VITALS: BP 94/60
== END 2018-05-25 15:45 | disposition home IV services (08) | DRG 720 ==
LOC: ER 10:44 → ED HOLD 12:19 → SUR 3N 16:11
PROVIDERS: ADMIT Hospitalist; ATTEND Internal Medicine
PROC: 02HV33Z Insertion of Infusion Device into Superior Vena Cava, Percutaneous Approach (ICD-10-PCS; principal; 2018-05-22)
PROC: B548ZZA Ultrasonography of Superior Vena Cava, Guidance (ICD-10-PCS; 2018-05-22)
DX: A41.01 Sepsis due to Methicillin susceptible Staphylococcus aureus (principal); I95.9 Hypotension, unspecified; F11.20 Opioid dependence, uncomplicated; F15.20 Other stimulant dependence, uncomplicated; I07.9 Rheumatic tricuspid valve disease, unspecified; A49.01 Methicillin susceptible Staphylococcus aureus infection, unspecified site; D64.9 Anemia, unspecified; F32.9 Major depressive disorder, single episode, unspecified
CPT/HCPCS: 36415; 36569; 76937; 80048; 80305; 84132; 85025; 87070; G0378; J1644; J3490; J7030

== ENCOUNTER 2018-06-12 02:51 | Emergency (ER) | payer MEDICAID ==
[~2018-06-12] VITALS: Ht 157.5 cm; Wt 52.8 kg
[2018-06-12 03:01] VITALS: BP 129/95
[2018-06-12] MEDS ORDERED: diphenhydrAMINE 25mg capsule PO ONE (03:55)
[2018-06-12] MEDS ORDERED: predniSONE 20 mg tablet PO ONE (03:55)
[2018-06-12] MEDS ORDERED: PRED20TA PO (03:58)
== END 2018-06-12 04:16 | disposition home or self-care (01) ==
LOC: ER 02:53
DX: R21 Rash and other nonspecific skin eruption (principal); F15.90 Other stimulant use, unspecified, uncomplicated; F11.90 Opioid use, unspecified, uncomplicated; Z79.899 Other long term (current) drug therapy; Z56.0 Unemployment, unspecified
CPT/HCPCS: 99283; J7512; Q0163

== ENCOUNTER → 2018-08-16 | Emergency (ER) | payer MEDICAID ==
[~2018-08-16] VITALS: Ht 157.5 cm; Wt 52.0 kg
[~2018-08-16] MED LIST changes: -NO HOME MEDS; +buprenorphine/naloxone 8mg/2mg SL tablet SL STA
[2018-08-16 17:13] VITALS: BP 117/80
== END | disposition home or self-care (01) ==
LOC: ER 17:06
DX: F11.20 Opioid dependence, uncomplicated (principal); Z76.0 Encounter for issue of repeat prescription; F15.90 Other stimulant use, unspecified, uncomplicated; Z88.0 Allergy status to penicillin
CPT/HCPCS: 99282